=== PATIENT | female | born 2000 | race Two or more races ===

== ENCOUNTER 2020-03-13 12:06 | Emergency (ER) | payer OTHER ==
[~2020-03-13] VITALS: Ht 157.5 cm; Wt 68.0 kg
== END 2020-03-13 22:49 | disposition home or self-care (01) ==
LOC: ER 12:06
DX: B34.9 Viral infection, unspecified (principal); Z03.818 Encounter for observation for suspected exposure to other biological agents ruled out; R05 Cough; R07.0 Pain in throat; R06.02 Shortness of breath; R51 Headache

== ENCOUNTER 2020-08-02 16:37 | Emergency (ER) | payer OTHER ==
[~2020-08-02] VITALS: Ht 157.5 cm; Wt 68.9 kg
[2020-08-02] MEDS ORDERED: CENTANY30 GM TOP (20:51)
[2020-08-02] MEDS ORDERED: CLEOCIN HCL300 MG PO (20:51)
[2020-08-02] MEDS ORDERED: IBU600 MG PO (20:51)
== END 2020-08-02 21:20 | disposition home or self-care (01) ==
LOC: ER 16:37 → EMR PED 17:05 → ER 17:05 → EMR PED 21:20
DX: N75.1 Abscess of Bartholin's gland (principal)

== ENCOUNTER 2022-05-20 20:57 | Emergency (ER) | payer OTHER ==
[~2022-05-20] VITALS: Ht 157.5 cm; Wt 68.0 kg
[~2022-05-20 20:57] MED LIST: CENTANY30 GM TOP; CLEOCIN HCL300 MG PO; IBU600 MG PO
[2022-05-20] MEDS ORDERED: DUI500 PO (21:41)
== END 2022-05-20 21:53 | disposition home or self-care (01) ==
LOC: ER 20:57
DX: J03.90 Acute tonsillitis, unspecified (principal)